=== PATIENT | male | born 1995 | race Caucasian/White ===

== ENCOUNTER 2018-07-10 00:52 | Emergency (ER) | payer OTHER ==
--- NOTE | 2018-07-10 01:03 | EDPHY ---
H & P Stated Complaint: mechanical fall, posterior head lac, "2 beers" Source: Patient - Personal History Current Tetanus/Diphtheria Vaccine: Yes Current Tetanus Diphtheria and Acellular Pertussis (TDAP): Yes - Medical/Surgical History Hx Asthma: No Hx Chronic Respiratory Disease: No Hx Diabetes: No Hx Cardiac Disease: No Hx Renal Disease: No Hx Cirrhosis: No Hx Alcoholism: No Hx HIV/AIDS: No Hx Splenectomy or Spleen Trauma: No Other PMH: HTN - Social History Smoking Status: Never smoked Time Seen by Provider: 07/10/18 01:03 HPI/ROS: HPI CHIEF COMPLAINT: Fall backwards slipped on a wet newspaper with head injury head laceration HISTORY OF PRESENT ILLNESS: 23-year-old male, presents emergency room stating that he had 2 beers this evening, he slipped on a wet newspaper walking up the stairs fell backwards with head strike against the railing. No LOC. No vomiting. Denies chest pain or shortness of breath. He arrives to the emergency room with a posterior occiput laceration 7 cm in vertical length. Patient is also noted be very tachycardic he states he is very anxious. He denies drug use tonight. He denies any other areas of injury. Past Medical History: Denies medical history Past Surgical History: Denies surgical history Social History: Denies drugs, did have alcohol this evening 2 beers. Family History: Noncontributory ROS REVIEW OF SYSTEMS: 10 Systems were reviewed and negative with the exception of the elements mentioned in the history of present illness. Exam Constitutional smells of alcohol, somewhat anxious, triage nursing summary reviewed, vital signs reviewed, awake/alert. Noted be tachycardic upon arrival Eyes normal conjunctivae and sclera, EOMI, PERRLA. HENT head/neck: No midline neck pain, no step-offs or crepitus, posterior occiput vertically oriented 7 cm laceration with underlying hematoma. moist mucus membranes, no epistaxis, neck supple/ no meningismus, no raccoon eyes. Respiratory clear to auscultation bilaterally, normal breath sounds, no respiratory distress, no wheezing. Cardiovascular tachycardic, regular rhythm, no murmur, no edema, distal pulses normal. Gastrointestinal soft, non-tender, no rebound, no guarding, normal bowel sounds, no distension, no pulsatile mass. Genitourinary no CVA tenderness. Musculoskeletal no midline vertebral tenderness, full range of motion, no calf swelling, no tenderness of extremities, no meningismus, good pulses, neurovascularly intact. Skin pink, warm, & dry, no rash, skin atraumatic. Neurologic awake, alert and oriented x 3, AAOx3, moves all 4 extremities equally, motor intact, sensory intact, CN II-XII intact, normal cerebellar, normal vision, normal speech. Psychiatric normal mood/affect. Heme/Lymph/Immune no lymphadenopathy. Differential Diagnosis: Includes but is not limited to in a particular order acute anxiety, panic attack, closed-head injury, intracranial bleed, skull fracture, alcohol intoxication tachycardia from anxiety, tachycardia from substance intoxication, cardiac arrhythmia Medical Decision Making: Plan for this patient CT scan head without contrast rule out intracranial bleed, repair laceration of the scalp. Re-evaluation: Breath alcohol 0.106. CT scan head without contrast negative for acute traumatic injury called to me by Dr. Maravilla. Laceration Repair Procedure: Verbal Consent was obtained, Under sterile conditions, posterior scalp laceration 7 cm The wound was copiously irrigated with sterile fluid, the wound was explored for foreign bodies there were none visualized, the wound was explored with a sterile glove to the base. There are no deep structures involved, including no arterial injury. 7 gladis were placed in the patient's laceration. He had good close approximation of the wound edges. He Tolerated this well. Patient understands have the gladis removed in 7 days. It Is noted the patient's heart rates in the 150s. I discussed this with him. He states he had 2 red Bulls an hour prior to coming in here. 1 with alcohol. Denies cocaine use or drug use. Patient's heart rate did go down to 107 however it is currently 150 again. Plan for patient IV establishment with IV fluid bolus, IV Ativan 1 mg for anxiety. Check electrolytes. EKG. For tachycardia. Patient EKG due to tachycardia, time of EKG 3:25 a.m., sinus tach 119 early Jennifer hugo pattner. EKG was performed due to tachycardic no chest pain on exam. Patient's drug screen positive cocaine. This explains his tachycardia of 160. 0412: Patient re-examined at this time. No chest pain or shortness of breath. He is resting comfortably in fact he went to sleep heart rate was down to 107. However when I woke him up and talk to his heart rate jumps back up to 160s. He denies any chest pain or shortness of breath. Patient is positive cocaine this most likely the cause of his tachycardia. 0542: Patient re-evaluated this time resting comfortably no chest pain. Repeat EKG time 5:40 a.m. Sinus tach 115 no signs of acute ischemia. T-wave inversion lead 3. No ST elevation. Patient's current heart rate 140. 5:50 a.m.. 0604: Patient continues to have tachycardia. I discussed the case in detail with Cardiology Dr. Jarvis. So she believes the patient should be admitted for persistent tachycardia cocaine induced tachycardia. She would like echocardiogram She would like serial troponins. I will touch base with the hospitalist service for admission. 0613: Spoke with Dr. Brand agrees to admit. Spoke with Dr. Jarvis, would like echo, serial trops. 0613AM: PAtient updated, HR in the 150s. Slowly coming down with IV ativan/ fluids. Of note this patient has been in the emergency room for over 6 hr with persistent tachycardia. ED x-ray chest one view negative for acute cardiopulmonary disease. (Kai Arroyo) Constitutional: Initial Vital Signs Temperature (C) 37.7 C 07/10/18 00:53 Heart Rate 120 H 07/10/18 00:53 Respiratory Rate 20 07/10/18 00:53 Blood Pressure 146/108 H 07/10/18 00:53 O2 Sat (%) 96 07/10/18 00:53 O2 Delivery Mode Room Air Allergies/Adverse Reactions: No Known Allergies Allergy (Unverified 07/10/18 00:53) Home Medications: Medication Instructions Recorded NK [No Known Home Meds] 07/10/18 Medical Decision Making - Diagnostics Imaging Results: Imaging Impressions Chest X-Ray 07/10/18 06:05 Impression: Normal. ED Course/Re-evaluation: 9:30 a.m. the patient's heart rate is been consistently in the 80s. His blood pressure is 120/70. He has been sleeping comfortable. His repeat troponin is negative and his echo is unremarkable. I discussed the case with medical service Dr. Simmons. They feel that he can be safely discharged and follow up with the regional flatbed truck driver for his congenital hypertension. He has been hydrated and his repeat CK is decreased. He will continue to hydrate orally. (Joseluis Redd) - Data Points Laboratory Results: Laboratory Results 07/10/18 03:20 07/10/18 03:20 07/10/18 07/10/18 07/10/18 06:00 03:20 03:20 WBC RBC Hgb Hct MCV MCH MCHC RDW Plt Count MPV Neut % (Auto) Lymph % (Auto) [place] % (Auto) Eos % (Auto) Baso % (Auto) Nucleat RBC Rel Count Absolute Neuts (auto) Absolute Lymphs (auto) Absolute Monos (auto) Absolute Eos (auto) Absolute Basos (auto) Absolute Nucleated RBC Immature Gran % Immature Gran # Sodium Potassium Chloride Carbon Dioxide Anion Gap BUN Creatinine Estimated GFR Glucose Calcium Creatine Kinase 1496 IU/L H IU/L (0-224) CK-MB (CK-2) Fraction 1.13 ng/mL ng/mL (0.00-4.55) CK-MB (CK-2) % 0.1 % % (0.0-4.0) Creatine Kinase Interp NEGATIVE (NEGATIVE) POC Troponin I 0.00 ng/mL ng/mL (0.00-0.08) Urine Opiates Screen NEGATIVE (NEGATIVE) Urine Barbiturates NEGATIVE (NEGATIVE) Ur Phencyclidine Scrn NEGATIVE (NEGATIVE) Ur Amphetamine Screen NEGATIVE (NEGATIVE) U Benzodiazepines Scrn NEGATIVE (NEGATIVE) Urine Cocaine Screen NON-NEGATIVE H (NEGATIVE) U Marijuana (THC) Screen NEGATIVE (NEGATIVE) 07/10/18 07/10/18 03:20 03:20 WBC 16.54 10^3/uL H 10^3/uL (3.80-9.50) RBC 5.86 10^6/uL 10^6/uL (4.40-6.38) Hgb 17.0 g/dL g/dL (13.7-17.5) Hct 48.1 % % (40.0-51.0) MCV 82.1 fL fL (81.5-99.8) MCH 29.0 pg pg (27.9-34.1) MCHC 35.3 g/dL g/dL (32.4-36.7) RDW 12.0 % % (11.5-15.2) Plt Count 252 10^3/uL 10^3/uL (150-400) MPV 9.1 fL fL (8.7-11.7) Neut % (Auto) 76.9 % H % (39.3-74.2) Lymph % (Auto) 16.3 % % (15.0-45.0) [place] % (Auto) 5.9 % % (4.5-13.0) Eos % (Auto) 0.1 % L % (0.6-7.6) Baso % (Auto) 0.4 % % (0.3-1.7) Nucleat RBC Rel Count 0.0 % % (0.0-0.2) Absolute Neuts (auto) 12.72 10^3/uL H 10^3/uL (1.70-6.50) Absolute Lymphs (auto) 2.69 10^3/uL 10^3/uL (1.00-3.00) Absolute Monos (auto) 0.98 10^3/uL H 10^3/uL (0.30-0.80) Absolute Eos (auto) 0.01 10^3/uL L 10^3/uL (0.03-0.40) Absolute Basos (auto) 0.07 10^3/uL 10^3/uL (0.02-0.10) Absolute Nucleated RBC 0.00 10^3/uL 10^3/uL (0-0.01) Immature Gran % 0.4 % % (0.0-1.1) Immature Gran # 0.07 10^3/uL 10^3/uL (0.00-0.10) Sodium 143 mEq/L mEq/L (135-145) Potassium 3.6 mEq/L mEq/L (3.3-5.0) Chloride 105 mEq/L mEq/L (97-110) Carbon Dioxide 19 mEq/l L mEq/l (22-31) Anion Gap 19 mEq/L H mEq/L (6-14) BUN 19 mg/dL mg/dL (7-23) Creatinine 1.1 mg/dL mg/dL (0.7-1.3) Estimated GFR > 60 Glucose 98 mg/dL mg/dL (70-100) Calcium 10.2 mg/dL mg/dL (8.5-10.4) Creatine Kinase CK-MB (CK-2) Fraction CK-MB (CK-2) % Creatine Kinase Interp POC Troponin I Urine Opiates Screen Urine Barbiturates Ur Phencyclidine Scrn Ur Amphetamine Screen U Benzodiazepines Scrn Urine Cocaine Screen U Marijuana (THC) Screen Medications Given: Discontinued Medications Sodium Chloride (Ns) 1,000 mls @ 0 mls/hr IV EDNOW ONE; Wide Open PRN Reason: Protocol Stop: 07/10/18 03:16 Last Admin: 07/10/18 03:22 Dose: 1,000 mls Sodium Chloride (Ns) 1,000 mls @ 0 mls/hr IV ONCE ONE PRN Reason: Wide Open Stop: 07/10/18 04:13 Last Admin: 07/10/18 04:14 Dose: 1,000 mls Sodium Chloride (Ns) 1,000 mls @ 0 mls/hr IV ONCE ONE PRN Reason: Wide Open Stop: 07/10/18 06:14 Last Admin: 07/10/18 06:42 Dose: 1,000 mls Lorazepam (Ativan Injection) 1 mg IVP EDNOW ONE Stop: 07/10/18 03:16 Last Admin: 07/10/18 03:21 Dose: 1 mg Lorazepam (Ativan Injection) 1 mg IVP EDNOW ONE Stop: 07/10/18 06:14 Last Admin: 07/10/18 06:42 Dose: 1 mg Point of Care Test Results: Chemistry 07/10/18 06:00 POC Troponin I 0.00 ng/mL ng/mL (0.00-0.08) Departure - Departure Disposition: Home, Routine, Self-Care Clinical Impression: Laceration, Head injury, Cocaine abuse, Tachycardia, Laceration of head, Rhabdomyolysis Condition: Good
[2018-07-10] MEDS ORDERED: NS 1,000 ML IV ONE ×3 (03:15→06:13)
[2018-07-10] MEDS ORDERED: LORazepam 2 MG/ML INJ IVP ONE ×2 (03:15→06:13)
[2018-07-10 03:33] LABS: PLATELET COUNT 252 10^3/uL (150-400)
[2018-07-10 06:26] LABS: CREATINE KINASE 1496 IU/L (0-224)
--- NOTE | 2018-07-10 06:44 | CPEKG ---
Test Reason : OPEN Blood Pressure : / mmHG Vent. Rate : 119 BPM Atrial Rate : 120 BPM P-R Int : 142 ms QRS Dur : 093 ms QT Int : 333 ms P-R-T Axes : 057 045 -20 degrees QTc Int : 469 ms Sinus tachycardia Borderline T abnormalities, inferior leads Borderline ST elevation, anterior leads Borderline prolonged QT interval Confirmed by Kai Arroyo ([id number]) on 07/10/2018 6:44:31 AM Referred By: Confirmed By:Kai Arroyo
--- NOTE | 2018-07-10 06:44 | CPEKG ---
Test Reason : OPEN Blood Pressure : / mmHG Vent. Rate : 115 BPM Atrial Rate : 115 BPM P-R Int : 142 ms QRS Dur : 089 ms QT Int : 352 ms P-R-T Axes : 055 049 -05 degrees QTc Int : 487 ms Sinus tachycardia Borderline T abnormalities, inferior leads Borderline prolonged QT interval Confirmed by Kai Arroyo ([id number]) on 07/10/2018 6:44:31 AM Referred By: Confirmed By:Kai Arroyo
--- NOTE | 2018-07-10 07:41 | GHP ---
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 SOURCE: Patient provides history and appears reliable. EMR was reviewed and case discussed with ED provider. CHIEF COMPLAINT: Fall and head injury. REASON FOR ED CONSULTATION: Tachycardia. HISTORY OF PRESENT ILLNESS: This is a pleasant 23-year-old gentleman with a past medical history sig nificant for essential hypertension since the age of 14, who [facility] a mechanical fall at home. He was walking up the stairs and slipped on some newspapers on the floor, falling backwards, hitting his head. He did not have any loss of consciousness. He de nies any headache. The patient had a posterior scalp laceration that was repaired with gladis. In the emergency department, it was noted that the patient was significantly tachycardic, into the 150s initially. He is in sinus rhythm. Further evaluation and discussion with the patient revealed that he had done several lines of cocaine this evening, in addition to drinking what he reports as 6 beers . He states that this is only the second time that he has used cocaine and he does plan to quit usin g any illicit drugs in the future. He denies any chest pain. No palpitations. No headache. No lig htheadedness. No numbness or tingling. The patient is reports that he is not currently on any antih ypertensives, which he was previously. At the age of 14, he was diagnosed with hypertension. 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 He did have a n echocardiogram, he reported, in his youth, but it has been some time since he has been on antihyper tensives. REVIEW OF SYSTEMS: Ten systems reviewed and otherwise negative. ALLERGIES: No known drug allergies. HOME MEDICATIONS: Kfte-hgf-kuwzerd melatonin h.s. p.r.n. PAST MEDICAL HISTORY: Significant for essential hypertension since the age of 14, not currently bein g treated. PAST SURGICAL HISTORY: Significant for left meniscus repair arthroscopically. FAMILY HISTORY: Father with a history of hypertension. Paternal grandfather with hyperlipidemia. M aternal grandfather with a history of CAD with MS at age 63. 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 He is originally from [place]. He repor ts that he drinks intermittently, has had occasional episodes of binge drinking to the point of black ing out. He states that he has used cocaine, this being only the second time, with plans to quit usi ng any illicit drugs. CODE STATUS: Full. PHYSICAL EXAMINATION: VITAL SIGNS: Upon arrival to the emergency department, blood pressure 146/108 , heart rate 120, respiratory rate 20, O2 saturation 96% on room air, and temperature 37.7. The jerri ent did have some elevated blood pressures up into the 150s with sitting up and/or mobilization. Cur [facility] vital signs available are blood pressure 164/86, heart rate 118, respiratory rate 18, and O2 sat uration 94% on room air with temperature 36.6. GENERAL: No acute distress. Very pleasant young roseanna lt gentleman resting quietly in bed. He does appear a little bit flushed but he is not diaphoretic. He is awake and pleasant. HEAD: Normocephalic. Patient with gladis in place in the posterior sca lp. No active bleeding. EYES: Extraocular muscles are intact. Pupils are slightly dilated but eleni ctive to light bilaterally. Minimal conjunctival injection. No scleral icterus. ENT: Mucous membr anes appear slightly dry. Dentition in fair condition. No nasal discharge. NECK: Supple. Trachea midline. CV: Tachycardic with regular rhythm. No murmurs, rubs, or gallops appreciated but limite d secondary to rate. RESPIRATORY: Lungs are clear to auscultation bilaterally. No wheezes, rales, or rhonchi appreciated. ABDOMEN: Positive bowel sounds. Soft and nontender to palpation. No rebou nd, guarding, or masses appreciated. : No suprapubic tenderness to palpation. No Overton catheter in place. EXTREMITIES: No cyanosis, clubbing, or edema appreciated. Patient with 2+ pedal pulses. NEUROLOGIC: Grossly nonfocal. Moves all extremities. No facial drooping. PSYCHIATRIC: Does appe ar a little bit anxious but he is pleasant and cooperative. Thought process, content, and all questi ons appear appropriate. LABORATORY STUDIES: WBC 16.54, H and H 17.0 and 48.1, MCV of 82.1, platelet count is 252, neutrophil percent 76.9, no bands. Sodium is 143, potassium 3.6, chloride 105, CO2 19, anion gap of 19, BUN 19 , creatinine is 1.1, GFR greater than 60, glucose is 98, and calcium is 10.2. CK is 1496, and CK-MB is 1.13. Troponin is negative. Tox screen is positive for cocaine. Chest x-ray: Image reviewed myself. Report is still pending. Appears clear, normal. No consolidat ions. CT head without contrast: Image and preliminary report reviewed. Negative for any intracranial hemo rrhage. EKG: Reviewed myself, initial EKG, sinus tachycardia in the 1-teens. QTc 469. Patient with less th an [address]-elevation in the inferior and anterior leads. Repeat EKG with persistent sinus tachycardia in the 1-teens. QTc 487. Nonspecific T-wave changes in the inferolateral leads. Minimal ST-elevation persistence but less prominent in the inferior and an terior leads. ASSESSMENT AND PLAN: A pleasant 23-year-old gentleman with a history of essential hypertension, repo rted history of occasional binge drinking, and recent use of cocaine, who presents to the emergency d [facility] following a mechanical fall, now with tachycardia, persistent. 1. Tachycardia. Likely secondary to cocaine toxicity. The patient's heart rate does increase with any exertion. Cardiology was consulted from the emergency department and they recommended an echocar diogram and admission for monitoring as the patient may be at risk for some endocardial injury. They do recommend serial troponins be trended and they will see the patient this morning. The patient de nies any chest pain, palpitations, or shortness of breath. However, I did advise him, if he should d evelop any of these symptoms, that he should notify the staff immediately. 2. Leukocytosis. Likely reactive in setting of cocaine toxicity, alcohol use, and current scalp inj ury. Patient is afebrile. No evidence of infectious process. 3. Elevated CK. Likely secondary to the patient's fall and injury. He did receive 2 L of IV fluid in the emergency department. We will plan repeat enzymes now. 4. History of essential hypertension with accelerated blood pressures, component of cocaine as well as the patient's history of underlying hypertension. He is currently asymptomatic as noted above. E ncouraged the patient to follow up with Cardiology or his primary care provider to monitor his blood pressures once the cocaine has exited his system. 5. Fluids, electrolytes, and nutrition. Status IV fluids, electrolytes are acceptable. N.p.o. pend ing echo study and Cardiology consult. 6. Prophylaxis. SCDs. Holding anticoagulation. The patient is overall low risk currently. As the patient's heart rate does escalate quickly, we will not encourage a whole lot of exertion until this improves but still overall risk is low. 7. Code status is full. DISPOSITION: Patient admitted to observation status to PCU for close cardiac monitoring. Anticipate potentially discharge less than 2 midnights once the patient's symptoms have resolved and patient bose s been cleared by Cardiology for discharge. /[id number]/MODL
[2018-07-10 07:52] LABS: CREATINE KINASE 1080 IU/L (0-224)
[2018-07-10 09:35] VITALS: BP 141/78
--- NOTE | 2018-07-10 10:58 | ECHO ---
[email or web address] [address] [address] Main: [phone] Fax: [email or web address] Echocardiogram Name: DEVAN KRUGER MR#: [id number] Study Date: 07/10/2018 Study Time: 07:13 AM Date of : 1995 Age: 23 year(s) Height: 175.3 cm (69 in.) Weight: 83.92 kg (185 lb.) BSA: 2 m2 Gender: Male Examination: Echo Indication: Tachycardia/positive cocaine abuse Image Quality: Excellent Contrast: Requested by: Kai Chapman BP: / Heart Rate: Rhythm: Indication: Tachycardia/positive cocaine abuse Procedure Staff Iron Cutter: Halina Barroso [facility] Reading Physician: Phong Cartwright MD Requesting Provider: Conclusions: Normal size left ventricle. No LV hypertrophy. Normal global systolic LV function. The ejection fraction is estimated to be 65-70 %. No regional wall motion abnormality. Normal diastolic LV function. Normal size right ventricle. Normal RV function. The left atrium is normal in size. The right atrium is normal in size. Definite Chiari's network in right atrium. No pericardial effusion. Measurements: Chambers Valvular Assessment AV/MV Valvular Assessment TV/PV Normal Normal Normal Name Value Range Name Value Range Name Value Range Ao Christine (MM): 3.1 cm (2.2 cm-3.7 AV Vmax: 1.31 m/s (1 m/s-1.7 cm) m/s) IVSd (2D): 0.9 cm (0.6 cm-1.1 AV maxP mmHg ( - ) cm) AV meanP mmHg ( - ) LVDd (2D): 5.0 cm (4.2 cm-5.9 MV E Vmax: 0.78 m/s ( - ) cm) MV A Vmax: 0.46 m/s ( - ) LVDs (2D): 3.2 cm (2.1 cm-4 MV E/A: 1.70 ( - ) cm) LVPWd (2D): 0.7 cm (0.6 cm-1 cm) LVEF (MOD4): 67 % (>=55 %) EF Range: 65-70 % Patient: DEVAN KRUGER Study Date: 07/10/2018 Page 1 of 2 07:13 AM Continued Measurements: Chambers Valvular Assessment AV/MV Name Value Name Value LADs: 3.0 cm MV E/E' Septal: 7.10 LADs Lon.7 cm MV E/E' Lateral: 5.10 LA Area: 15.4 cm2 LA Volume: 39 ml LA Volume Index: 19.5 ml/m2 Findings: Left Ventricle: Normal size left ventricle. No LV hypertrophy. Normal global systolic LV function. The ejection fraction is estimated to be 65-70 %. No regional wall motion abnormality. Normal diastolic LV function. Right Ventricle: Normal size right ventricle. Normal RV function. Left Atrium: The left atrium is normal in size. Right Atrium: The right atrium is normal in size. Definite Chiari's network in right atrium. Mitral Valve: The mitral valve is normal in appearance and function. Trivial mitral valve regurgitation. Aortic Valve: The aortic valve is normal in appearance and function. The aortic valve is tri-leaflet. Tricuspid Valve: The tricuspid valve is normal in appearance and function. Trivial to mild tricuspid valve regurgitation. Pulmonic Valve: The pulmonic valve is normal in appearance and function. Trivial pulmonic valve regurgitation. Aorta: The aorta is normal. Pericardium: No pericardial effusion. (No Signature Object) Patient: DEVAN KRUGER Study Date: 07/10/2018 Page 2 of 2 07:13 AM [id number]
== END 2018-07-10 09:43 | disposition home or self-care (01) ==
LOC: UNDOADMOB 06:32
PROC: 0HQ0XZZ Repair Scalp Skin, External Approach (ICD-10-PCS; principal; 2018-07-10)
DX: S01.01XA Laceration without foreign body of scalp, initial encounter (principal); R00.0 Tachycardia, unspecified; F14.90 Cocaine use, unspecified, uncomplicated; E86.9 Volume depletion, unspecified; W01.198A Fall on same level from slipping, tripping and stumbling with subsequent striking against other object, initial encounter
CPT/HCPCS: 80305; 84484-PO; 96374; J2060